=== PATIENT | male | born 1990 | race African-American/Black ===

== ENCOUNTER 2018-12-23 15:47 | Emergency (ER) | payer OTHER ==
[2018-12-23] MEDS ORDERED: Ketorolac 60 MG/2 ML SDV IM ONE (16:11)
--- NOTE | 2018-12-23 16:25 | EDM.PDOC ---
<Lydia Cannon - Last Filed: 12/23/18 17:13> ED HPI GENERAL MEDICAL PROBLEM - General Chief Complaint: Back Pain or Injury Stated Complaint: BACK PAIN Time Seen by Provider: 12/23/18 15:51 Source of Information: Reports: Patient History Limitations: Reports: No Limitations - History of Present Illness INITIAL COMMENTS - FREE TEXT/NARRATIVE: HISTORY AND PHYSICAL: History of present illness: Patient is a 28-year-old male who presents for lower back pain that began one month ago. Patient reports that the pain is a stabbing, shooting pain that radiates from his right hip down his right leg. He states that it is worse in the morning and with movement. Rest and Tylenol help relieve the pain. He did slip and hit his right hip two weeks prior to pain onset. He denies urinary/ bowel retention, urinary/bowel incontinence, and saddle anesthesia. Patient denies fever, chills, chest pain, shortness of breath, or cough. Denies headache, neck stiff ness, change in vision, syncope, or near syncope. Denies nausea, vomiting, abdominal pain, diarrhea, constipation, or dysuria. Has not noted any blood in urine or stool. Patient has been eating and drinking appropriately. Review of systems: As per history of present illness and below otherwise all systems reviewed and negative. Past medical history: As per history of present illness and as reviewed below otherwise noncontributory. Surgical history: As per history of present illness and as reviewed below otherwise noncontributory. Social history: See social history for further information Family history: As per history of present illness and as reviewed below otherwise noncontributory. Physical exam: General: Patient is alert, oriented, and in no acute distress. Patient sitting comfortably on exam table HEENT: Atraumatic, normocephalic, pupils equal and reactive bilaterally, negative for conjunctival pallor or scleral icterus, mucous membranes moist, TMs normal bilaterally, throat clear, neck supple, nontender, trachea midline. No drooling or trismus noted. No meningeal signs. No hot potato voice noted. Lungs: Clear to auscultation, breath sounds equal bilaterally, chest nontender. Heart: S1S2, regular rate and rhythm without overt murmur Abdomen: Soft, nondistended, nontender. Negative for masses or hepatosplenomegaly. Negative for costovertebral tenderness. Pelvis: Stable nontender. Genitourinary: Deferred. Rectal: Deferred. Skin: Intact, warm, dry. No lesions or rashes noted. Extremities/Musculoskeletal: Atraumatic, negative for cords or calf pain. Neurovascular unremarkable. Pain in right hip reproduced with having the patient stand up. Pain is not reproducible with palpation. ROM and strength intact. Neuro: Awake, alert, oriented. Cranial nerves II through XII unremarkable. Cerebellum unremarkable. Motor and sensory unremarkable throughout. Exam nonfocal. Notes: Discussed the importance of follow up with his primary care provider. Voices understanding and is agreeable to plan of care. Denies any further questions or concerns at this time. Diagnostics: Lumbar XR, Pelvis/Right Hip XR, UA Therapeutics: Toradol Norflex Prescription: Diclofenac Flexeril Impression: Low back pain, right Plan: 1. Alternate tylenol and ibuprofen as directed for pain and discomfort. Take medication as prescribed. 2. Follow up with primary care provider as discussed. Return to ED as needed and as discussed. Definitive disposition and diagnosis as appropriate pending reevaluation and review of above. Right lower back Pain Score (Numeric/FACES): 9 - Related Data Allergies Allergy/AdvReac Type Severity Reaction Status Date / Time No Known Allergies Allergy Verified 12/23/18 15:55 Home Meds: Home Meds Cyclobenzaprine [Flexeril] 10 mg PO TID PRN #8 tab 12/23/18 [Rx] Diclofenac Sodium [Voltaren] 75 mg PO BIDMEALS PRN #10 tab.cr 12/23/18 [Rx] Past Medical History - Past Health History Medical/Surgical History: Denies Medical/Surgical History Social & Family History - Family History Family Medical History: Noncontributory - Tobacco Use Smoking Status *Q: Never Smoker - Caffeine Use Caffeine Use: Reports: None - Recreational Drug Use Recreational Drug Type: Reports: Marijuana/Hashish ED ROS GENERAL - Review of Systems Review Of Systems: ROS reveals no pertinent complaints other than HPI. ED EXAM,LOWER BACK PAIN/INJURY - Physical Exam Exam: See Below (see dictation) Course - Vital Signs Last Recorded V/S: Last Vital Signs Temp 36.6 C 12/23/18 15:56 Pulse 74 12/23/18 17:25 Resp 18 12/23/18 17:25 BP 135/67 12/23/18 17:25 Pulse Ox 97 12/23/18 17:25 - Orders/Labs/Meds Labs: Laboratory Tests 12/23/18 Range/Units 16:13 Urine Color YELLOW Urine Appearance CLEAR Urine pH 6.0 (5.0-8.0) Ur Specific [place] >= 1.030 (1.001-1.035) Urine Protein NEGATIVE (NEGATIVE) mg/dL Urine Glucose (UA) NEGATIVE (NEGATIVE) mg/dL Urine Ketones NEGATIVE (NEGATIVE) mg/dL Urine Occult Blood NEGATIVE (NEGATIVE) Urine Nitrite NEGATIVE (NEGATIVE) Urine Bilirubin NEGATIVE (NEGATIVE) Urine Urobilinogen 1.0 (<2.0) EU/dL Ur Leukocyte Esterase NEGATIVE (NEGATIVE) Meds: Medications Discontinued Medications Generic Name Dose Route Start Last Admin Trade Name Justin PRN Reason Stop Dose Admin Ketorolac Tromethamine 60 mg 12/23/18 16:11 12/23/18 16:20 Toradol IM 12/23/18 16:12 60 mg ONETIME ONE Administration Orphenadrine Citrate 60 mg 12/23/18 16:11 12/23/18 16:20 Norflex IM 12/23/18 16:12 60 mg NOW STA Administration Departure - Departure Time of Disposition: 17:14 Disposition: Home, Self-Care 01 Clinical Impression: Low back pain Qualifiers: Chronicity: acute Back pain laterality: right Sciatica presence: with sciatica Sciatica laterality: sciatica of right side Qualified Code(s): M54.41 - Lumbago with sciatica, right side - Discharge Information Prescriptions: Cyclobenzaprine [Flexeril] 10 mg PO TID PRN #8 tab PRN Reason: Spasms Diclofenac Sodium [Voltaren] 75 mg PO BIDMEALS PRN #10 tab.cr PRN Reason: Pain Instructions: Acute Back Pain, Adult Referrals: PCP,None [Primary Care Provider] - Forms: ED Department Discharge Additional Instructions: The following information is given to patients seen in the emergency department who are being discharged to home. This information is to outline your options for follow-up care. We provide all patients seen in our emergency department with a follow-up referral. The need for follow-up, as well as the timing and circumstances, are variable depending upon the specifics of your emergency department visit. If you don't have a primary care physician on staff, we will provide you with a referral. We always advise you to contact your personal physician following an emergency department visit to inform them of the circumstance of the visit and for follow-up with them and/or the need for any referrals to a consulting specialist. The emergency department will also refer you to a specialist when appropriate. This referral assures that you have the opportunity for follow-up care with a specialist. All of these measure are taken in an effort to provide you with optimal care, which includes your follow-up. Under all circumstances we always encourage you to contact your private physician who remains a resource for coordinating your care. When calling for follow-up care, please make the office aware that this follow-up is from your recent emergency room visit. If for any reason you are refused follow-up, please contact the [facility] Emergency Department at and asked to speak to the emergency department charge nurse. [facility] [address] [place] [id number] [facility] [address] [place] [id number] 1. Alternate tylenol and ibuprofen as directed for pain and discomfort. Take medication as prescribed. 2. Follow up with primary care provider as discussed. Return to ED as needed and as discussed. <Susi Gu - Last Filed: 12/23/18 18:49> ED HPI GENERAL MEDICAL PROBLEM - History of Present Illness INITIAL COMMENTS - FREE TEXT/NARRATIVE: I have personally seen the patient and agree with the above note. Patient is agreeable to plan of care as outlined above without questions or concerns.
--- NOTE | 2018-12-23 17:11 | CR ---
Indication: Pain for 3 weeks. Technique: Three views of the lumbar spine were obtained. Comparison: None Findings: The alignment of the lumbar spine is within normal limits. The vertebral body heights are well maintained. The intervertebral disc space heights are well maintained. No acute fracture or subluxation is identified. Impression: No acute fracture. Dictated by Carla Breen MD @ Dec 23 2018 5:08PM Signed by Dr. Carla Breen @ Dec 23 2018 5:09PM
--- NOTE | 2018-12-23 17:11 | CR ---
Indication: Pain for 1 year. Technique: AP views of the pelvis and frogleg view of the right hip were obtained. Comparison: None Findings: Both femoral heads are seated within the acetabula. No acute fracture or subluxation is identified. Impression: No acute fracture. Dictated by Carla Breen MD @ Dec 23 2018 5:09PM Signed by Dr. Carla Breen @ Dec 23 2018 5:09PM
== END 2018-12-23 17:25 | disposition home or self-care (01) ==
LOC: MW.ED 15:47
DX: M54.41 Lumbago with sciatica, right side (principal)
CPT/HCPCS: 72100; 73501; 81003; 96372; 99283; J1885; J2360

== ENCOUNTER 2020-02-26 20:57 | Emergency (ER) | payer BC, OTHER ==
[2020-02-26] MEDS ORDERED: Sodium Chloride 0.9% 1,000 ML IV ONE ×2 (21:07→21:16)
--- NOTE | 2020-02-26 21:07 | EDM.PDOC ---
<TimSae - Last Filed: 02/27/20 02:01> ED HPI GENERAL MEDICAL PROBLEM - General Chief Complaint: Abdominal Pain Stated Complaint: BACK PAIN AND ABDOMINAL PAIN Time Seen by Provider: 02/26/20 21:04 - Related Data Allergies Allergy/AdvReac Type Severity Reaction Status Date / Time No Known Allergies Allergy Verified 02/26/20 21:11 Home Meds: Home Meds Ibuprofen 600 mg PO Q8HR PRN 5 Days #15 tablet 02/27/20 [Rx] diazePAM [Valium] 5 mg PO TID PRN 3 Days #9 tablet 02/27/20 [Rx] Departure - Departure Time of Disposition: 02:02 Disposition: Home, Self-Care 01 Condition: Good Clinical Impression: Back pain - Discharge Information *PRESCRIPTION DRUG MONITORING PROGRAM REVIEWED*: Not Applicable *COPY OF PRESCRIPTION DRUG MONITORING REPORT IN PATIENT RACHEL: Not Applicable Prescriptions: Ibuprofen 600 mg PO Q8HR PRN 5 Days #15 tablet PRN Reason: Pain diazePAM [Valium] 5 mg PO TID PRN 3 Days #9 tablet PRN Reason: Muscle Spasm Instructions: Acute Back Pain, Adult Referrals: [facility] [Outside] - 3 Days Forms: ED Department Discharge Additional Instructions: I encourage you to take the ibuprofen 3 times daily with food as an anti- inflammatory you can take the Valium at night to help prevent muscle spasm. If your symptoms worsen or any other new symptoms develop that concern you I encourage you to return to the emergency department. Otherwise please follow-up with the primary care clinic. The following information is given to patients seen in the emergency department who are being discharged to home. This information is to outline your options for follow-up care. We provide all patients seen in our emergency department with a follow-up referral. The need for follow-up, as well as the timing and circumstances, are variable depending upon the specifics of your emergency department visit. If you don't have a primary care physician on staff, we will provide you with a referral. We always advise you to contact your personal physician following an emergency department visit to inform them of the circumstance of the visit and for follow-up with them and/or the need for any referrals to a consulting specialist. The emergency department will also refer you to a specialist when appropriate. This referral assures that you have the opportunity for follow-up care with a specialist. All of these measure are taken in an effort to provide you with optimal care, which includes your follow-up. Under all circumstances we always encourage you to contact your private physician who remains a resource for coordinating your care. When calling for follow-up care, please make the office aware that this follow-up is from your recent emergency room visit. If for any reason you are refused follow-up, please contact the [facility] Emergency Department at and asked to speak to the emergency department charge nurse. - Assessment/Plan Assessment:: Patient received in signout from prior provider. Patient presents with sudden onset atraumatic severe right flank pain radiating into the right lower quadrant on my exam the patient has a benign abdomen. His labs are notable for significant hemoconcentration versus polycythemia vera his chemistry is normal he has no testicular symptoms that would suggest testicular torsion. CT scan shows no clear hydro-no clear stone but contrast material fills the bilateral ureters which can sometimes obscure small stones. Patient without risk factors for aortic dissection no findings of AAA on CT patient's clinical syndrome seems most consistent with renal colic and labs and CT have excluded other acute pathologies, though musculoskeletal pain with spasm remains a consideration we will trial a dose of Toradol and reassess. 0030: Pt's sx have improved some. However, he continues to have severe pain with even minimal movement. Will add valium to see if severe muscle spasm may be contributing to this. However, if he remains severely symptomatic following this then will need to consider referral to observation for intractable pain. 0200: The patient is now woken up he is much more mobile he was able to sit up and walk to the bathroom his pain clearly worsens with movement given this I would favor musculoskeletal back pain. He says that his pain is tolerable and he is comfortable going home. I will send prescriptions for ibuprofen and Valiu m to the pharmacy he will follow-up with the primary care clinic strict return precautions discussed and understood. <Deborah Tyson E - Last Filed: 03/01/20 18:45> ED HPI GENERAL MEDICAL PROBLEM - General Source of Information: Reports: Patient History Limitations: Reports: No Limitations - History of Present Illness INITIAL COMMENTS - FREE TEXT/NARRATIVE: HISTORY AND PHYSICAL: History of present illness: Patient is a 29-year-old male who presents to the emergency room with complaints of low back pain and abdominal pain. He states that about 3 PM this afternoon while sitting in his car picking up his children he had a sudden onset of low back pain. He states the pain moves depending on how he is positioning his weight. Over the past few hours the pain has now radiated into the general abdomen. He initially thought maybe it was gas, he has been taking Sprite hoping to alleviate the abdominal discomfort. Pain has not improved. He states he does have a history of back pain, was seen in the emergency room approximately 14 months ago for an episode of back pain. States this pain is not similar. He denies any recent fall, trauma or injury. Patient denies any fever, chills, headache, change in vision, syncope or near syncope. Denies any chest pain, shortness of breath or cough. Denies any nausea, vomiting, diarrhea, constipation or dysuria. Has not noted any blood in urine or stool. Denies any testicular pain, redness or swelling. Patient has been eating and drinking appropriately. Review of systems: As per history of present illness and below otherwise all systems reviewed and negative. Past medical history: As per history of present illness and as reviewed below otherwise noncontributory. Surgical history: As per history of present illness and as reviewed below otherwise noncontributory. Social history: See social history for further information Family history: As per history of present illness and as reviewed below otherwise noncontributory. Physical exam: General: Well developed and well nourished 29-year-old -British male. Alert and orientated x 3. Tearful, but nontoxic in appearance and in no acute distress. Vital signs are stable and have been reviewed by me. Nursing notes arash e reviewed. HEENT: Atraumatic, normocephalic, pupils equal and reactive bilaterally, negative for conjunctival pallor or scleral icterus, mucous membranes moist, TMs normal bilaterally, throat clear, neck supple, nontender, trachea midline. No drooling or trismus noted. No meningeal signs. No hot potato voice noted. Lungs: Clear to auscultation, breath sounds equal bilaterally, chest nontender. Normal work of breathing, no accessory muscles used. Heart: S1S2, regular rate and rhythm without overt murmur Abdomen: Soft, obese, mild tenderness in all 4 quadrants. Negative for masses or costovertebral tenderness. Pelvis: Stable nontender. C-spine/Back: No pinpoint vertebral tenderness upon palpation. No crepitus, step-offs or obvious deformities. Paraspinous muscular tenderness to the low l umbar region. Patient is ambulatory into the emergency room without difficulty or deficit. Able to rock back on heels and walk on toes. Denies any urinary or fecal incontinence. Denies any numbness, tingling or saddle paresthesia. No concerns of serious infection, fracture or cord compression, or cauda equina syndrome. Deep tendon reflexes brisk bilaterally. Skin: Intact, warm, dry. No lesions or rashes noted. Hematologic: No petechiae or purpra. Mucosa appropriate color and normal nail bed color and refill. Extremities: Atraumatic, moves all extremities per self without difficulty or deficits, negative for cords or calf pain. Neurovascular unremarkable. Neuro: Awake, alert, oriented. Cranial nerves II through XII unremarkable. Cerebellum unremarkable. Motor and sensory unremarkable throughout. Exam nonfocal. Notes: Labs and CT results are pending. Dr Dumont was given report and will follow this patient and disposition patient appropriately. Diagnostics: CBC, CMP, UA, Lipase, CT abd/pelvis Therapeutics: IV fluids, Morphine Impression: Back Pain Definitive disposition and diagnosis as appropriate pending reevaluation and review of above. Lower Back Pain Score (Numeric/FACES): 10 Past Medical History - Past Health History Medical/Surgical History: Denies Medical/Surgical History Social & Family History - Family History Family Medical History: Noncontributory - Caffeine Use Caffeine Use: Reports: None ED ROS GENERAL - Review of Systems Review Of Systems: Comprehensive ROS is negative, except as noted in HPI. ED EXAM, GI/ABD - Physical Exam Exam: See Below (See dictation) Course - Vital Signs Last Recorded V/S: Last Vital Signs Temp 96.8 F L 02/27/20 01:44 Pulse 68 02/27/20 02:21 Resp 18 02/27/20 02:21 BP 114/69 02/27/20 02:21 Pulse Ox 98 02/27/20 02:21 - Orders/Labs/Meds Labs: Laboratory Tests 02/26/20 02/26/20 02/26/20 Range/Units 21:22 21:22 23:05 WBC 5.59 (4.0-11.0) K/uL RBC 5.97 H (4.50-5.90) M/uL Hgb 17.7 H (13.0-17.0) g/dL Hct 51.0 H (38.0-50.0) % MCV 85.4 (80.0-98.0) fL MCH 29.6 (27.0-32.0) pg MCHC 34.7 (31.0-37.0) g/dL RDW Std Deviation 38.9 (28.0-62.0) fl RDW Coeff of Breanna 13 (11.0-15.0) % Plt Count 212 (150-400) K/uL MPV 10.00 (7.40-12.00) fL Neut % (Auto) 45.9 L (48.0-80.0) % Lymph % (Auto) 43.5 H (16.0-40.0) % [place] % (Auto) 8.8 (0.0-15.0) % Eos % (Auto) 1.4 (0.0-7.0) % Baso % (Auto) 0.4 (0.0-1.5) % Neut # (Auto) 2.6 (1.4-5.7) K/uL Lymph # (Auto) 2.4 (0.6-2.4) K/uL [place] # (Auto) 0.5 (0.0-0.8) K/uL Eos # (Auto) 0.1 (0.0-0.7) K/uL Baso # (Auto) 0.0 (0.0-0.1) K/uL Nucleated RBC % 0.0 /100WBC Nucleated RBCs # 0 K/uL Sodium 138 (136-148) mmol/L Potassium 4.0 (3.5-5.1) mmol/L Chloride 102 (98-107) mmol/L Carbon Dioxide 28.8 (21.0-32.0) mmol/L BUN 11 (7.0-18.0) mg/dL Creatinine 1.0 (0.8-1.3) mg/dL Est Cr Clr Drug Dosing 114.00 mL/min Estimated GFR (MDRD) > 60.0 ml/min Glucose 112 H (74-106) mg/dL Calcium 9.1 (8.5-10.1) mg/dL Total Bilirubin 0.2 (0.2-1.0) mg/dL AST 26 (15-37) IU/L ALT 43 (14-63) IU/L Alkaline Phosphatase 83 (46-116) U/L Total Protein 8.5 H (6.4-8.2) g/dL Albumin 3.8 (3.4-5.0) g/dL Globulin 4.7 H (2.6-4.0) g/dL Albumin/Globulin Ratio 0.8 L (0.9-1.6) Urine Color YELLOW Urine Appearance CLEAR Urine pH 6.5 (5.0-8.0) Ur Specific [place] 1.015 (1.001-1.035) Urine Protein NEGATIVE (NEGATIVE) mg/dL Urine Glucose (UA) NEGATIVE (NEGATIVE) mg/dL Urine Ketones NEGATIVE (NEGATIVE) mg/dL Urine Occult Blood NEGATIVE (NEGATIVE) Urine Nitrite NEGATIVE (NEGATIVE) Urine Bilirubin NEGATIVE (NEGATIVE) Urine Urobilinogen 1.0 (<2.0) EU/dL Ur Leukocyte Esterase NEGATIVE (NEGATIVE) Meds: Medications Discontinued Medications Generic Name Dose Route Start Last Admin Trade Name Freq PRN Reason Stop Dose Admin Diazepam 5 mg 02/27/20 00:24 02/27/20 00:31 Valium IV 02/27/20 00:25 5 mg ONETIME ONE Administration Hydromorphone HCl 1 mg 02/26/20 23:22 02/26/20 23:28 Dilaudid IVPUSH 02/26/20 23:23 1 mg ONETIME ONE Administration Sodium Chloride 1,000 mls @ 999 mls/hr 02/26/20 21:07 Normal Saline IV 02/26/20 22:07 STAT ONE Sodium Chloride 1,000 mls @ 999 mls/hr 02/26/20 21:16 02/26/20 21:23 Normal Saline IV 02/26/20 22:16 999 mls/hr STAT ONE Administration Iopamidol 100 ml 02/26/20 23:01 02/26/20 23:02 Isovue-370 (76%) IVPUSH 02/26/20 23:02 100 ml ONETIME STA Administration Ketorolac Tromethamine 30 mg 02/26/20 23:47 02/26/20 23:53 Toradol IVPUSH 02/26/20 23:48 30 mg ONETIME ONE Administration Morphine Sulfate 4 mg 02/26/20 21:16 02/26/20 21:23 Morphine IVPUSH 02/26/20 21:17 4 mg ONETIME ONE Administration
[2020-02-26] MEDS ORDERED: Morphine 4 MG/ML Syringe IVPUSH ONE (21:16)
[2020-02-26 21:51] LABS: BLOOD UREA NITROGEN,BUN 11 mg/dL (7.0-18.0); CARBON DIOXIDE,CO2 28.8 mmol/L (21.0-32.0); CHLORIDE,CL 102 mmol/L (98-107); GLUCOSE RANDOM 112 mg/dL (74-106); SODIUM,NA 138 mmol/L (136-148)
[2020-02-26] MEDS ORDERED: Iopamidol 755 Mg/ML 100 ML Bottle IVPUSH STA (23:01)
[2020-02-26] MEDS ORDERED: HYDROmorphone 1 MG/ML Syringe IVPUSH ONE (23:22)
--- NOTE | 2020-02-26 23:45 | CT ---
INDICATION: Pain TECHNIQUE: CT abdomen and pelvis acquired with IV contrast. 100 mL of Isovue 370 administered. COMPARISON: None available FINDINGS: Lower chest: Unremarkable. Liver: Unremarkable. Spleen: Apparent punctate calcified granulomas. Pancreas: Unremarkable. Gallbladder and bile ducts: Unremarkable. Adrenal glands: Unremarkable. Kidneys: Unremarkable. GI tract: No mechanical bowel obstruction. Nondilated fluid-filled small bowel segments are nonspecific. No evidence of appendicitis. No significant pericolonic changes. Vascular structures: Unremarkable. Lymph nodes: Few borderline and shotty subcentimeter pelvic lymph nodes, and a shotty subcentimeter right lower quadrant mesenteric lymph node, nonspecific. Miscellaneous: No significant free fluid or free air. Pelvic Organs: Upper limits of normal prostatic size. No gross bladder abnormality seen. Bones: Focal sclerosis in the posterior right ilium adjacent to the sacroiliac joint which may be reactive. IMPRESSION: No evidence of appendicitis, diverticulitis or bowel obstruction. Nonspecific fluid-filled small bowel segments. Correlate clinically to exclude enteritis. Upper limits of normal prostatic size. Correlate clinically. Dictated by Arnaldo Garcia MD @ 02/26/2020 11:43:59 PM Please note that all CT scans at this facility use dose modulation, iterative reconstruction, and/or weight-based dosing when appropriate to reduce radiation dose to as low as reasonably achievable. Dictated by: Arnaldo Garcia MD @ 02/26/2020 23:44:07 (Electronically Signed)
[2020-02-26] MEDS ORDERED: Ketorolac 30 MG/ML SDV IVPUSH ONE (23:47)
[2020-02-27] MEDS ORDERED: diazePAM 5 MG/ML MDV IV ONE (00:24)
== END 2020-02-27 02:25 | disposition home or self-care (01) ==
LOC: MW.ED 20:57
DX: M54.5 Low back pain (principal)
CPT/HCPCS: 36415; 74177; 80053; 81003; 85025; 96361; 96374; 96375; 99284; J1170; J1885; J2270; J3360; J7030; Q9967; 99283

== ENCOUNTER 2021-04-24 02:45 | Emergency (ER) | payer SELFPAY ==
[2021-04-24] MEDS ORDERED: Famotidine 20 MG Tab PO ONE (03:04)
[2021-04-24] MEDS ORDERED: Alum Hydrox/Mag Hydrox/Simeth 15 ML, Lidocaine 2% 5 ML PO ONE ×2 (03:04)
[2021-04-24] MEDS ORDERED: Aluminum Hydroxide/Magnesium Hydroxide/Simethicone XS Susp 30 ML Cup PO ONE (03:16)
[2021-04-24] MEDS ORDERED: Lidocaine 2% Viscous Solution 15 ML Cup PO ONE (03:16)
[2021-04-24 03:49] LABS: BLOOD UREA NITROGEN,BUN 11 mg/dL (7.0-18.0); CARBON DIOXIDE,CO2 29.2 mmol/L (21.0-32.0); CHLORIDE,CL 103 mmol/L (98-107); GLUCOSE RANDOM 128 mg/dL (74-106); LIPASE 103 U/L (73-393); POTASSIUM,K 3.3 mmol/L (3.5-5.1); SODIUM,NA 142 mmol/L (136-148)
[2021-04-24] MEDS ORDERED: diphenhydrAMINE 50 MG/ML SDV IVPUSH ONE (03:50)
[2021-04-24] MEDS ORDERED: Haloperidol Lactate 5 MG/ML SDV IM ONE (03:50)
--- NOTE | 2021-04-24 05:13 | EDM.PDOC ---
ED HPI GENERAL MEDICAL PROBLEM - General Chief Complaint: Abdominal Pain Stated Complaint: STOMACH PAIN Time Seen by Provider: 04/24/21 03:07 - History of Present Illness INITIAL COMMENTS - FREE TEXT/NARRATIVE: CHIEF COMPLAINT(S): Abdominal pain HISTORY OF PRESENT ILLNESS: This is a 31-year-old man without any significant past medical history who comes to the emergency department with a chief complaint of abdominal pain. The patient states that approximately prior to arrival when he woke up from sleep he was experiencing 10 out of 10 pain in the periumbilical area. He denies any nausea or vomiting and he states that he thought it was gas. He tried to use the restroom however it still continued to her. He describes it as constant pain and cannot explain the type of pain. He states that he has had this before without any diagnosis and it resolved on its own. He states that he may force himself to vomit. There was no hematemesis or bilious emesis. He denies any melena or hematochezia. He denies any diarrhea. He states that he has not yet taken anything for the pain. The pain does not radiate anywhere. There are no exacerbating or relieving factors. REVIEW OF SYSTEMS: Constitutional: Denies fever, chills. Eyes: Denies eye pain Ears, Nose, Mouth, & Throat: Denies earache Cardiovascular: Denies chest pain Respiratory: Denies shortness of breath Gastrointestinal: Positive for abdominal pain. Denies nausea, vomiting, diarrhea, hematochezia, hematemesis, bilious emesis Genitourinary: Denies hematuria Skin:Denies a rash MSK: Denies joint pain Neurological: Denies blurred vision Psychiatric: Denies depression PAST MEDICAL HISTORY: As per history of present illness and as reviewed below otherwise noncontributory. SURGICAL HISTORY: As per history of present illness and as reviewed below ot herwise noncontributory. SOCIAL HISTORY: As per history of present illness and as reviewed below otherwise noncontributory. FAMILY HISTORY: As per history of present illness and as reviewed below ot herwise noncontributory. EXAMINATION OF ORGAN SYSTEMS/BODY AREAS: Constitutional: Blood pressure was 120/56, heart rate 63, respiratory rate 20 with an oxygen saturation of 98% on room air. Temperature 36.4 General: Obese man who is in no acute distress Psychiatric: Appropriate mood and affect. Eyes: No scleral icterus or conjunctival erythema ENMT: Moist mucous membranes. No pharyngeal erythema Cardiovascular: Regular, rate, and rhythm. No gallops, murmurs, or rubs. Bilateral upper extremity pulses symmetric and intact. No peripheral edema. No JVD. Respiratory: Lungs clear to auscultation bilaterally. No wheezes, rales, or rhonchi. Gastrointestinal: Soft, minimal tenderness in the epigastric and periumbilical area. Nondistended. No rebound or guarding. Negative Harvey's and McBurney's. Normoactive bowel sounds Genitourinary: No suprapubic tenderness Musculoskeletal: Normal range of motion. Skin: No lesions or abrasions. Neurological: Alert, GCS 15 MEDICAL DECISION MAKING AND COURSE IN THE ED WITH INTERPRETATION/REVIEW OF DIAGNOSTIC STUDIES: This is a 31-year-old man and without any significant past medical history who comes to the emergency department with acute onset periumbilical and epigastric abdominal pain. At this time we will obtain CBC, CMP and lipase. Differential includes pancreatitis, peptic ulcer disease, gastritis, gastroenteritis. We will provide the patient with a GI cocktail and famotidine and reevaluate to see if his pain does improve. On reevaluation the patient's pain did not significantly improve. Will obtain a CT abdomen pelvis with IV contrast and provide the patient with Haldol and Benadryl for pain relief. The patient states that he does not want a CT because of the contrast as it makes him feel warm. At this time we will treat his pain and reevaluate for p.o. toleration. Laboratory: CBC is unremarkable. CMP reveals hypokalemia at 3.3 otherwise unremarkable. Lipase is normal. On reevaluation the patient reported complete resolving of his pain. At this time he was amenable discharge. He was instructed to use famotidine daily and to follow-up with his primary care physician. He is to return for any new or worsening symptoms. He was amenable to discharge and had no further questions DISPOSITION: The patient was discharged home in stable condition. The patient will follow up with primary care physician in 3 to 5 days CONDITION: Fair PROCEDURES: None FINAL IMPRESSION(S)/DIAGNOSES: 1. Acute abdominal pain Ryne Duke M.D. Upper Abdomen Pain Score (Numeric/FACES): 10 - Related Data Allergies Allergy/AdvReac Type Severity Reaction Status Date / Time No Known Allergies Allergy Verified 04/24/21 02:55 Home Meds: Home Meds Ibuprofen 600 mg PO Q8HR PRN 5 Days #15 tablet 02/27/20 [Rx] diazePAM [Valium] 5 mg PO TID PRN 3 Days #9 tablet 02/27/20 [Rx] Past Medical History - Past Health History Medical/Surgical History: Denies Medical/Surgical History HEENT History: Reports: None Cardiovascular History: Reports: None Respiratory History: Reports: None Gastrointestinal History: Reports: None Genitourinary History: Reports: None Musculoskeletal History: Reports: None Neurological History: Reports: None Psychiatric History: Reports: None Endocrine/Metabolic History: Reports: None Hematologic History: Reports: None Immunologic History: Reports: None Oncologic (Cancer) History: Reports: None Dermatologic History: Reports: None - Infectious Disease History Infectious Disease History: Reports: None - Past Surgical History Head Surgeries/Procedures: Reports: None Social & Family History - Family History Family Medical History: No Pertinent Family History - Tobacco Use Tobacco Use Status *Q: Never Tobacco User - Caffeine Use Caffeine Use: Reports: None - Recreational Drug Use Recreational Drug Use: No ED ROS GENERAL - Review of Systems Review Of Systems: See Below ED EXAM, GENERAL - Physical Exam Exam: See Below Course - Vital Signs Last Recorded V/S: Last Vital Signs Temp 36.4 C 04/24/21 02:55 Pulse 72 04/24/21 05:40 Resp 18 04/24/21 05:40 BP 121/67 04/24/21 05:40 Pulse Ox 97 04/24/21 05:40 - Orders/Labs/Meds Labs: Laboratory Tests 04/24/21 04/24/21 Range/Units 03:20 03:20 WBC 5.45 (4.0-11.0) K/uL RBC 5.34 (4.50-5.90) M/uL Hgb 16.0 (13.0-17.0) g/dL Hct 45.4 (38.0-50.0) % MCV 85.0 (80.0-98.0) fL MCH 30.0 (27.0-32.0) pg MCHC 35.2 (31.0-37.0) g/dL RDW Std Deviation 39.6 (28.0-62.0) fl RDW Coeff of Breanna 13 (11.0-15.0) % Plt Count 219 (150-400) K/uL MPV 10.20 (7.40-12.00) fL Neut % (Auto) 47.1 L (48.0-80.0) % Lymph % (Auto) 41.5 H (16.0-40.0) % Brown % (Auto) 9.9 (0.0-15.0) % Eos % (Auto) 1.3 (0.0-7.0) % Baso % (Auto) 0.2 (0.0-1.5) % Neut # (Auto) 2.6 (1.4-5.7) K/uL Lymph # (Auto) 2.3 (0.6-2.4) K/uL Brown # (Auto) 0.5 (0.0-0.8) K/uL Eos # (Auto) 0.1 (0.0-0.7) K/uL Baso # (Auto) 0.0 (0.0-0.1) K/uL Nucleated RBC % 0.0 /100WBC Nucleated RBCs # 0 K/uL Sodium 142 (136-148) mmol/L Potassium 3.3 L (3.5-5.1) mmol/L Chloride 103 (98-107) mmol/L Carbon Dioxide 29.2 (21.0-32.0) mmol/L BUN 11 (7.0-18.0) mg/dL Creatinine 1.1 (0.8-1.3) mg/dL Est Cr Clr Drug Dosing 98.62 mL/min Estimated GFR (MDRD) > 60.0 ml/min Glucose 128 H (74-106) mg/dL Calcium 8.8 (8.5-10.1) mg/dL Total Bilirubin 0.3 (0.2-1.0) mg/dL AST 22 (15-37) IU/L ALT 31 (14-63) IU/L Alkaline Phosphatase 68 (46-116) U/L Total Protein 8.1 (6.4-8.2) g/dL Albumin 3.3 L (3.4-5.0) g/dL Globulin 4.8 H (2.6-4.0) g/dL Albumin/Globulin Ratio 0.7 L (0.9-1.6) Lipase 103 (73-393) U/L Meds: Medications Discontinued Medications Generic Name Dose Route Start Last Admin Trade Name Ivanq PRN Reason Stop Dose Admin Al Hydroxide/Mg Hydroxide 15 0 ml 04/24/21 03:04 04/24/21 03:22 ml/ Lidocaine HCl 5 ml PO 04/24/21 03:05 15 each ONETIME ONE Administration Diphenhydramine HCl 25 mg 04/24/21 03:50 04/24/21 04:04 Diphenhydramine 50 Mg/Ml Sdv IVPUSH 04/24/21 03:51 25 mg ONETIME ONE Administration Famotidine 20 mg 04/24/21 03:04 04/24/21 03:22 Famotidine 20 Mg Tab PO 04/24/21 03:05 20 mg ONETIME ONE Administration Haloperidol Lactate 2.5 mg 04/24/21 03:50 04/24/21 04:05 Haloperidol Lactate 5 Mg/Ml Sdv IM 04/24/21 03:51 2.5 mg ONETIME ONE Administration Lidocaine HCl 5 ml 04/24/21 03:16 04/24/21 03:22 Lidocaine 2% Viscous Solution 15 Ml Cup PO 04/24/21 03:17 Not Given ONETIME ONE Departure - Departure Time of Disposition: 05:12 Disposition: Home, Self-Care 01 Condition: Fair Clinical Impression: Abdominal pain - Discharge Information *PRESCRIPTION DRUG MONITORING PROGRAM REVIEWED*: No *COPY OF PRESCRIPTION DRUG MONITORING REPORT IN PATIENT RACHEL: No Instructions: Abdominal Pain, Adult, [id number] Referrals: PCP,None [Primary Care Provider] - Forms: ED Department Discharge Additional Instructions: You were evaluated today on an emergent basis. At this time it is uncertain as to what is causing your abdominal pain however I do recommend use [id number] Pepcid daily and follow-up with your primary care physician. If you have any worsening symptoms I would like you to return to the emergency department. Otherwise follow-up with your primary care physician in 3 to 5 days. [facility] - Primary Care [address] [place] [id number] [address] [id number] The patient is informed of any results of their evaluation and diagnostic workup and all questions are answered. They are given discharge instructions and return precautions. The patient is stable for discharge. The patient states they understand and agree with the plan and that they will return if their symptoms get worse or if they have any new concerns. The following information is given to patients seen in the emergency department who are being discharged to home. This information is to outline your options for follow-up care. We provide all patients seen in our emergency department with a follow-up referral. The need for follow-up, as well as the timing and circumstances, are variable depending upon the specifics of your emergency department visit. If you don't have a primary care physician on staff, we will provide you with a referral. We always advise you to contact your personal physician following an emergency department visit to inform them of the circumstance of the visit and for follow-up with them and/or the need for any referrals to a consulting specialist. The emergency department will also refer you to a specialist when appropriate. This referral assures that you have the opportunity for follow-up care with a specialist. All of these measure are taken in an effort to provide you with optimal care, which includes your follow-up. Under all circumstances we always encourage you to contact your private physician who remains a resource for coordinating your care. When calling for follow-up care, please make the office aware that this follow-up is from your recent emergency room visit. If for any reason you are refused follow-up, please contact the [facility] Emergency Department at and asked to speak to the emergency department charge nurse. Sepsis Event Note (ED) - Focused Exam Vital Signs: Vital Signs Temp Pulse Resp BP Pulse Ox 04/24/21 05:40 72 18 121/67 97 04/24/21 04:33 67 18 124/63 98 04/24/21 02:55 36.4 C 63 20 120/56 L 98
== END 2021-04-24 05:41 | disposition home or self-care (01) ==
LOC: MW.ED 02:45
DX: R10.33 Periumbilical pain (principal)
CPT/HCPCS: 36415; 80053; 83690; 85025; 96372; 96374; 99284; A9270; J1200; J1630

== ENCOUNTER 2021-07-07 04:41 | Emergency (ER) | payer SELFPAY ==
[2021-07-07] MEDS ORDERED: Acetaminophen 500 MG Tab PO ONE (04:58)
[2021-07-07] MEDS ORDERED: Cyclobenzaprine 10 MG Tab PO ONE (04:58)
[2021-07-07] MEDS ORDERED: Ketorolac 30 MG/ML SDV IM ONE (04:58)
[2021-07-07] MEDS ORDERED: Dexamethasone 10 MG/ML SDV IM STA (04:59)
--- NOTE | 2021-07-07 05:06 | EDM.PDOC ---
ED HPI GENERAL MEDICAL PROBLEM - General Chief Complaint: Back Pain or Injury Stated Complaint: LOWER BACK PAIN- RIGHT SIDE Time Seen by Provider: 07/07/21 04:42 Source of Information: Reports: Patient History Limitations: Reports: No Limitations - History of Present Illness INITIAL COMMENTS - FREE TEXT/NARRATIVE: 31-year-old male presents for right-sided low back pain. Patient notes that he has had these symptoms before. He has had a CT image of the lumbar spine does not have an MRI. He notes that a few days ago he was going down some stairs and the pain seemed to start then. He denies any falls or direct trauma. He notes that the pain stays in his right lower back without radiation. Denies saddle anesthesia, urinary retention or incontinence, fevers. No hematuria or dysuria. No abdominal pain. Right Lower Back Pain Score (Numeric/FACES): 7 - Related Data Allergies Allergy/AdvReac Type Severity Reaction Status Date / Time No Known Allergies Allergy Verified 07/07/21 04:46 Home Meds: Home Meds Cyclobenzaprine [Flexeril] 10 mg PO TID PRN #20 tab 07/07/21 [Rx] Ibuprofen [Motrin] 600 mg PO Q6H PRN #30 tab 07/07/21 [Rx] diazePAM [Valium] 5 mg PO QPM PRN #3 tablet 07/07/21 [Rx] predniSONE 40 mg PO DAILY 5 Days #10 tab 07/07/21 [Rx] Past Medical History - Past Health History Medical/Surgical History: Denies Medical/Surgical History HEENT History: Reports: None Cardiovascular History: Reports: None Respiratory History: Reports: None Gastrointestinal History: Reports: None Genitourinary History: Reports: None Musculoskeletal History: Reports: None Neurological History: Reports: None Psychiatric History: Reports: None Endocrine/Metabolic History: Reports: None Hematologic History: Reports: None Immunologic History: Reports: None Oncologic (Cancer) History: Reports: None Dermatologic History: Reports: None - Infectious Disease History Infectious Disease History: Reports: None, Novel Coronavirus - Past Surgical History Head Surgeries/Procedures: Reports: None Social & Family History - Family History Family Medical History: No Pertinent Family History - Tobacco Use Tobacco Use Status *Q: Never Tobacco User - Caffeine Use Caffeine Use: Reports: None - Recreational Drug Use Recreational Drug Use: No ED ROS GENERAL - Review of Systems Review Of Systems: Comprehensive ROS is negative, except as noted in HPI. ED EXAM, GENERAL - Physical Exam Exam: See Below Exam Limited By: No Limitations General Appearance: Alert, WD/WN, No Apparent Distress Ears: Hearing Grossly Normal Throat/Mouth: Normal Voice, No Airway Compromise Head: Atraumatic, Normocephalic Respiratory/Chest: No Respiratory Distress, No Accessory Muscle Use Cardiovascular: Normal Peripheral Pulses Back Exam: Normal Inspection, Paraspinal Tenderness (right paralumbar vertebral musculature). No: Vertebral Tenderness Extremities: Normal Inspection Neurological: Alert, Normal Cognition, Normal Gait Psychiatric: Normal Affect, Normal Mood Skin Exam: Warm, Dry, Intact, Normal Color Course - Vital Signs Last Recorded V/S: Last Vital Signs Temp 96.8 F L 07/07/21 04:47 Pulse 73 07/07/21 04:47 Resp 17 07/07/21 04:47 BP 146/97 H 07/07/21 04:47 Pulse Ox 97 07/07/21 04:47 - Orders/Labs/Meds Meds: Medications Discontinued Medications Generic Name Dose Route Start Last Admin Trade Name Justin PRN Reason Stop Dose Admin Acetaminophen 1,000 mg 07/07/21 04:58 07/07/21 05:05 Acetaminophen 500 Mg Tab PO 07/07/21 04:59 1,000 mg ONETIME ONE Administration Cyclobenzaprine HCl 10 mg 07/07/21 04:58 07/07/21 05:05 Cyclobenzaprine 10 Mg Tab PO 07/07/21 04:59 10 mg ONETIME ONE Administration Dexamethasone 10 mg 07/07/21 04:59 07/07/21 05:04 Dexamethasone 10 Mg/Ml Sdv IM 07/07/21 05:00 10 mg STAT STA Administration Ketorolac Tromethamine 30 mg 07/07/21 04:58 07/07/21 05:05 Ketorolac 30 Mg/Ml Sdv IM 07/07/21 04:59 30 mg ONETIME ONE Administration - Re-Assessments/Exams Free Text/Narrative Re-Assessment/Exam: 07/07/21 05:09 Patient symptoms are consistent with musculoskeletal pain. There are no red flag signs or symptoms. Had a long discussion with patient regarding importance of PMD follow-up and consideration of MRI imaging of the lumbar spine for definitive diagnosis. Discussed with patient treatment plan including nonsteroidal anti-inflammatory medication, steroidal anti-inflammatory medication, pain medication, and muscle relaxant. Patient understands and is agreeable with plan. Outpatient medications were sent to his pharmacy. Information was provided for primary care physician follow-up for further work- up and more definitive diagnosis. Departure - Departure Time of Disposition: 05:10 Disposition: Home, Self-Care 01 Condition: Good Clinical Impression: Low back pain Qualifiers: Chronicity: acute Back pain laterality: right Sciatica presence: without sciatica Qualified Code(s): M54.50 - Low back pain, unspecified - Discharge Information Prescriptions: Cyclobenzaprine [Flexeril] 10 mg PO TID PRN #20 tab PRN Reason: Muscle Spasm - Painful Ibuprofen [Motrin] 600 mg PO Q6H PRN #30 tab PRN Reason: Pain predniSONE 40 mg PO DAILY 5 Days #10 tab diazePAM [Valium] 5 mg PO QPM PRN #3 tablet PRN Reason: Muscle Spasm - Painful Instructions: Acute Back Pain, Adult Forms: ED Department Discharge Additional Instructions: Your history and physical exam is consistent with musculoskeletal low back pain. In the emergency department you were given an injection of a nonsteroidal anti-inflammatory medication, and injection of a long-acting steroid medication, Tylenol, and Flexeril which is a muscle spasm medication. 4 different medications were sent to your pharmacy, [facility]. Prednisone which is a steroid should be taken for the next 5 days and is a powerful anti- inflammatory medication that can help stop the underlying inflammatory process. Motrin 600 mg is prescription strength ibuprofen and is the same as [id number] Motrin but a more appropriate dose. Valium is a powerful muscle relaxant that should not be taken with alcohol or when operating a vehicle. I have sent 3 tablets of Valium that can help you get some sleep and relax for the next few days. Flexeril is a less powerful muscle relaxant that does not work as well but is less sedating. These medicines are safe to take with [id number] Tylenol. Try to take the steroid and motrin with food as it can be upsetting to the stomach. For definitive diagnosis I would recommend getting an MRI of the lumbar spine. As we discussed this is not typically something that is ordered from the emergency department. I am afraid if I write an order for an outpatient MRI, your insurance would not cover it and you would be stuck with the bill. For this reason I would recommend establishing care with a primary care physician who is more easily able to order this nonemergent test. Information is provided below for how to establish care with a primary care physician. If your pain becomes unbearable, if you find that your lower extremities are weak or you are having paralysis, if you find that you are urinating on yourself or cannot urinate despite the urge to urinate, or if you develop numbness and loss of sensation around your groin and anus these would all be reasons to emergently come back to the emergency department. These are signs of spinal cord entrapment and although incredibly rare can lead to permanent paralysis. The following information is given to patients seen in the emergency department who are being discharged to home. This information is to outline your options for follow-up care. We provide all patients seen in our emergency department with a follow-up referral. The need for follow-up, as well as the timing and circumstances, are variable depending upon the specifics of your emergency department visit. If you don't have a primary care physician on staff, we will provide you with a referral. We always advise you to contact your personal physician following an emergency department visit to inform them of the circumstance of the visit and for follow-up with them and/or the need for any referrals to a consulting specialist. The emergency department will also refer you to a specialist when appropriate. This referral assures that you have the opportunity for follow-up care with a specialist. All of these measure are taken in an effort to provide you with optimal care, which includes your follow-up. Under all circumstances we always encourage you to contact your private physician who remains a resource for coordinating your care. When calling for follow-up care, please make the office aware that this follow-up is from your recent emergency room visit. If for any reason you are refused follow-up, please contact the [facility] Emergency Department at and asked to speak to the emergency department charge nurse. Please follow up with your primary care physician. If you do not have a primary care physician, see below: [facility] [address] [place], [place] [id number] [facility] [address] [place], [place] [id number] Sepsis Event Note (ED) - Evaluation Sepsis Screening Result: No Definite Risk - Focused Exam Vital Signs: Vital Signs Temp Pulse Resp BP Pulse Ox 07/07/21 04:47 96.8 F L 73 17 146/97 H 97
== END 2021-07-07 05:31 | disposition home or self-care (01) ==
LOC: MW.ED 04:41
DX: M54.50 Low back pain, unspecified (principal); Z86.16 Personal history of COVID-19
CPT/HCPCS: 96372; 99283; A9270; J1100; J1885

== ENCOUNTER 2021-07-23 13:27 | Emergency (ER) | payer SELFPAY | END 2021-07-23 13:55 | disposition home or self-care (01) | LOC: MW.ED 13:27 | DX: R51.9 Headache, unspecified (principal); R53.83 Other fatigue; R05.9 Cough, unspecified; Z20.822 Contact with and (suspected) exposure to COVID-19; Z87.891 Personal history of nicotine dependence | CPT/HCPCS: 99283; U0002 ==